=== PATIENT | female | born 1930 | race Caucasian/White ===

== ENCOUNTER 2018-02-25 17:56 | Emergency (ER) | payer OTHER, BC ==
[~2018-02-25] VITALS: Ht 167.6 cm; Wt 99.8 kg
--- NOTE | 2018-02-25 17:56 | NUR ---
PATIENT TO BED 4 BY EMS.
[2018-02-25 18:00] VITALS: BP 153/77
[2018-02-25] MEDS ORDERED: AMIO100T3 PO (18:14)
[2018-02-25] MEDS ORDERED: ATOR20TA40 PO (18:14)
[2018-02-25] MEDS ORDERED: CLOP75TA55 PO (18:14)
[2018-02-25] MEDS ORDERED: NITR50CA1 PO (18:14)
[2018-02-25] MEDS ORDERED: BUPR-160 PO (18:14)
[2018-02-25] MEDS ORDERED: ACET-5636 PO (18:14)
[2018-02-25] MEDS ORDERED: FLONAS NS (18:14)
[2018-02-25] MEDS ORDERED: DOCU-299 PO (18:14)
[2018-02-25] MEDS ORDERED: FURO-570 PO (18:14)
[2018-02-25] MEDS ORDERED: LORA10TA19 PO (18:17)
--- NOTE | 2018-02-25 18:19 | NUR ---
87 YO FEMALE BIB EMS FROM [facility] FOR FALL FROM BED TO FLOOR. C/O BILATERAL WRIST PAIN AND BILATERAL SHOULDER PAIN. PT DENIES KO OR LOC. AAOx4, PERRLA, BREATHING EVEN AND UNLABORED. PT UNABLE TO AMBULATE TO OWN ABILITY. ERMD NOTIFIED OF PATIENT STATUS.
[2018-02-25] MEDS ORDERED: POTA10TE30 PO (18:23)
[2018-02-25] MEDS ORDERED: LEVO0.2T5 PO (18:23)
[2018-02-25] MEDS ORDERED: METO25TA PO (18:23)
[2018-02-25] MEDS ORDERED: GABA300C PO (18:23)
[2018-02-25] MEDS ORDERED: MORP15TE33 PO (18:23)
--- NOTE | 2018-02-25 19:04 | NUR ---
Dr. Medrano evaluating patient at bedside.
--- NOTE | 2018-02-25 19:12 | NUR ---
Pt report given to LOIDA AGUILERA. Transfer of care at this time.
--- NOTE | 2018-02-25 19:14 | NUR ---
PT SITTING IN BED. A/O X 4. VITALS STABLE.
[2018-02-25] MEDS ORDERED: ACETAMINOPHEN EXTRA STRENGTH 500 MG TAB PO ONE (19:25)
--- NOTE | 2018-02-25 19:40 | NUR ---
PT TAKEN TO RADIOLOGY
--- NOTE | 2018-02-25 20:05 | NUR ---
PT RETURNED FROM RADIOLOGY
[2018-02-25 20:29] LABS: BASOPHILS % (AUTO) 0.4 % (0.0-2.0); EOSINOPHILS # (AUTO) 0.3 K/uL (0-0.4); EOSINOPHILS % (AUTO) 3.3 % (0.0-4.0); HEMATOCRIT 35.4 % (36-48); HEMOGLOBIN 11.4 g/dL (12.0-16.0); LYMPHOCYTES # (AUTO) 1.3 K/uL (2.5-16.5); LYMPHOCYTES % (AUTO) 16.5 % (20.5-51.1); MEAN CORPUSCULAR HEMOGLOBIN 30 pg (27-31); MEAN CORPUSCULAR HGB CONC 32 g/dL (33-37); MEAN CORPUSCULAR VOLUME 93.6 fL (80-94); MONOCYTES # (AUTO) 0.9 K/uL (0.8-1.0); MONOCYTES % (AUTO) 11.4 % (1.7-9.3); NEUTROPHILS # (AUTO) 5.5 K/uL (1.8-7.7); NEUTROPHILS % (AUTO) 68.4 % (42.2-75.2); PLATELET COUNT (AUTO) 259 K/uL (140-450); RED BLOOD CELL COUNT(AUTO) 3.78 MIL/uL (4.20-5.40); WHITE BLOOD COUNT (AUTO) 8.1 K/uL (4.8-10.8)
[2018-02-25 20:58] LABS: ANION GAP 10.4 (8-16); CARBON DIOXIDE 34.3 mmol/L (21-32); CHLORIDE 101 mmol/L (98-107); CREATININE 1.3 mg/dL (0.6-1.3); GLUCOSE 103 mg/dL (74-106); POTASSIUM 3.7 mmol/L (3.5-5.1); SODIUM SERUM 142 mmol/L (136-145); UREA NITROGEN, BLOOD 12 mg/dL (7-18)
[2018-02-25 21:02] LABS: PROTHROMBIN TIME 11.1 secs (10.8-13.4)
[2018-02-25 21:04] LABS: ALBUMIN 2.8 g/dL (3.4-5.0); ASPARTATE AMINOTRANSFERASE 26 U/L (15-37); TOTAL BILIRUBIN 0.5 mg/dL (0.0-1.0)
--- NOTE | 2018-02-25 22:15 | NUR ---
X-Ray at bedside.
--- NOTE | 2018-02-25 22:50 | NUR ---
PT WATING FOR TRANSFER BACK TO [facility]. PT VITALS STABLE. OFFERED COMFORT MEASURES. TOLERATED WELL.
[2018-02-26 00:45] VITALS: BP 166/58
--- NOTE | 2018-02-26 00:45 | NUR ---
Patient discharged with v/s stable. Written and verbal after care instructions given and explained. Patient alert, oriented and verbalized understanding of instructions. Ambulatory with steady gait. All questions addressed prior to discharge. ID band removed. Patient advised to follow up with PMD. Rx of ACETAMINOPHEN given. Patient educated on indication of medication including possible reaction and side effects. Opportunity to ask questions provided and answered. Addendum: 02/26/18 at 0119 by [facility] Patient discharged with v/s stable. Written and verbal after care instructions given and explained. Patient alert, oriented and verbalized understanding of instructions. Transfered by wheelchair. All questions addressed prior to discharge. ID band removed. Patient advised to follow up with PMD. Rx of ACETAMINOPHEN given. Patient educated on indication of medication including possible reaction and side effects. Opportunity to ask questions provided and answered.
--- NOTE | 2018-02-26 00:45 | NUR ---
TRANSPORTATION HERE FOR PT.
--- NOTE | 2018-02-26 00:52 | NUR ---
[facility] AT BEDSIDE
--- NOTE | 2018-02-26 00:59 | NUR ---
[facility]
== END 2018-02-26 00:59 | disposition home or self-care (01) ==
LOC: MED 17:56
DX: S73.101A Unspecified sprain of right hip, initial encounter (principal); S46.912A Strain of unspecified muscle, fascia and tendon at shoulder and upper arm level, left arm, initial encounter; M46.82 Other specified inflammatory spondylopathies, cervical region; J44.9 Chronic obstructive pulmonary disease, unspecified; R51 Headache; Z90.710 Acquired absence of both cervix and uterus; Z90.89 Acquired absence of other organs; Z88.0 Allergy status to penicillin; Z79.899 Other long term (current) drug therapy; W06.XXXA Fall from bed, initial encounter; Y93.89 Activity, other specified; Y92.89 Other specified places as the place of occurrence of the external cause; Y99.8 Other external cause status
CPT/HCPCS: 36415; 70450; 71045; 72125; 73030; 73090; 73140; 73502; 80053; 84484; 85025; 85610; 85730; 86886; 86900; 86901; 93005; 99285; Q0092